=== PATIENT | male | born 1960 | race Caucasian/White ===

== ENCOUNTER → 2019-03-19 | Outpatient (CLI) | payer OTHER ==
[~2019-03-19] MED LIST: AUGMENTIN 875875 MG PO; FLONASE 0.05%50 MCG NS; IMITREX100 MG PO; NOHOMEMEDICATIONS; PERCOCET 5-3251 EACH PO
== END ==
LOC: CAT 08:30
DX: Z13.6 Encounter for screening for cardiovascular disorders (principal); I25.10 Atherosclerotic heart disease of native coronary artery without angina pectoris; E78.00 Pure hypercholesterolemia, unspecified

== ENCOUNTER → 2021-06-21 | Outpatient (CLI) | payer BC | LOC: SJCVCIMAG 10:56 | PROVIDERS: ATTEND Internal Medicine Cardiovascular Disease | DX: R07.9 Chest pain, unspecified (principal); R93.1 Abnormal findings on diagnostic imaging of heart and coronary circulation; Z79.899 Other long term (current) drug therapy; Z72.89 Other problems related to lifestyle ==